=== PATIENT | male | born 1930 | race Hispanic/Latino ===

== ENCOUNTER 2017-08-02 10:02 | Inpatient (IN) | payer MEDICARE, MEDICAID ==
[2017-08-02 10:38] LABS: Base Excess-Venous -9.3 mmol/L (-30.0-30.0); Bicarbonate (HCO3v) 18.7 mmol/L (1.0-85.0); CO2 Tension (PvCO2) 47.1 mmHg (41.0-51.0); Calcium, Ionized 1.15 mmol/L (1.12-1.32); Hemoglobin - Calc 15.5 g/dL (12.0-18.0); O2 Tension (PvO2) 26.8 mmHg (35.0-45.0); Potassium 4.4 mmol/L (3.4-4.7); T. Carbon Dioxide 20.2 mmol/L (1.0-85.0); pH (Venous) 7.207 (7.35-7.45); vO2 Saturation-calc 37.5 % (0.0-100.0)
[2017-08-02 10:42] LABS: Hemoglobin 13.7 g/dL (14.0-18.0); Mean Corpuscular Hemoglobin 29.3 pg (27.0-31.0); Mean Corpuscular Volume 94.7 fl (80.0-94.0); Mean Platelet Volume 8.5 fL (7.4-10.4); Platelet Count 129 thou/uL (130-400); RBC Distribution Width 13.1 % (11.5-14.5); Red Blood Cell (RBC) Count 4.66 mill/uL (4.70-6.10); White Blood Cell (WBC) Count 3.1 thou/uL (4.8-10.8)
[2017-08-02 11:04] LABS: ALT (SGPT) 13 U/L (8-55); AST (SGOT) 16 U/L (5-34); Albumin 3.8 g/dL (3.4-4.8); Alkaline Phosphatase 118 U/L (40-150); Anion Gap 20 mmol/L (10-20); BUN (Urea Nitrogen) 27 mg/dL (8.4-25.7); Bilirubin, Total 0.9 mg/dL (0.2-1.2); Calc. Creatinine Clearance 0 mL/min (70-130); Calcium 9.2 mg/dL (7.8-10.44); Carbon Dioxide 16 mmol/L (23-31); Chloride 105 mmol/L (98-107); Estimated GFR-MDRD 33; Globulin 3.4 g/dL (2.4-3.5); Glucose 248 mg/dL (83-110); Protein, Total 7.2 g/dL (5.8-8.1); Sodium 137 mmol/L (136-145)
[2017-08-02 11:10] LABS: Band 24 % (5-11); Lymphocytes 12 % (21-51); MDiff Complete? YES; Monocytes 1 % (0-10); Neutrophil 63 % (42-75); PLT Morphology Comment Appears Adequate; RBC Morphology Normal
--- NOTE | 2017-08-02 11:28 | RAD ---
PORTABLE CHEST: Date: 08-02-17 Provided Clinical History: Hematuria. FINDINGS: Comparison 11-03-16. Cardiac and mediastinal silhouette is within normal limits. Vascular calcification involves the aorti c arch. No definite focal consolidation, pleural fluid or pneumothorax is apparent. IMPRESSION: No evidence for an acute cardiopulmonary process. POS: [facility]
[2017-08-02] MEDS ORDERED: Gentamicin Sulfate 340 MG in Sodium Chloride 0.9% 100 ML IVPB SCH (12:30)
[2017-08-02] MEDS ORDERED: cefTRIAXone\\ROCEPHIN 2 GM in Sodium Chloride 0.9% 100 ML IVPB SCH (12:45)
[2017-08-02] MEDS ORDERED: Acetaminophen 650 MG Suppository ONE (13:27)
[2017-08-02 14:25] LABS: Actual Bicarbonate (HCO3a) 15.1 mEq/L (22-26); Base Excess (BEa) -15.6 mEq/L (0 (+/-) 2.5); CO2 Tension 62.9 mmHg (35.0-45.0); Hematocrit-ABG 23.5 % (42.0-52.0); Hemoglobin (Hb) 8.4 g/dL (14.0-18.0); O2 Tension (PaO2) 164.8 mmHg (80.0-100.0)
[2017-08-02 14:26] LABS: ALV-art Gradient 464.575 (0-20); Analyzer IN Cardio ER; Puncture Site RRA
[2017-08-02] MEDS ORDERED: Norepinephrine 8 MG/0.9% NS 0 ML ONE (14:34)
[2017-08-02] MEDS ORDERED: Norepinephrine 8 MG/0.9% NS 250 ML ONE (14:35)
[2017-08-02 15:04] LABS: Lactic Acid 16.3 mmol/L (0.5-2.2)
[2017-08-02 15:12] LABS: pH, Arterial 7.12 (7.35-7.45)
[2017-08-02 15:13] LABS: ALV-art Gradient 537.975 (0-20); Analyzer IN Cardio ER; Base Excess (BEa) -16.4 mEq/L (0 (+/-) 2.5); CO2 Tension 37.7 mmHg (35.0-45.0); Calcium, Ionized 1.1 mmol/L (1.12-1.30); Hematocrit-ABG 30.9 % (42.0-52.0); Hemoglobin (Hb) 10.5 g/dL (14.0-18.0); O2 Tension (PaO2) 122.9 mmHg (80.0-100.0); Puncture Site RBA
--- NOTE | 2017-08-02 15:31 | RAD ---
PORTABLE CHEST 1 VIEW: DATE: 08/02/17. TIME: 3:14 p.m. HISTORY: Respiratory failure. FINDINGS: Comparison is made with the exam of 11:04 a.m. from the same day. Interval placement of an endotracheal tube is seen with the tip just above the level of the che. A nasogastric tube can be traced into the stomach. There is a right jugular central line with tip in the projection of the SVC close to the cavoatrial junction. There is mild pulmonary vascular conges tion. There are faint opacities in the right mid and lower lung zones. No pneumothoraces or large e ffusions are seen. There are degenerative changes in the spine. Old healed fracture of the right cl avicle is again noted. POS: [facility]
[2017-08-02 15:35] LABS: PTT 63.9 SEC (22.9-36.1); Prothrombin Time 23.1 SEC (12.0-14.7)
--- NOTE | 2017-08-02 15:51 | CT ---
CT OF THE ABDOMEN AND PELVIS WITHOUT CONTRAST: Date: 08/02/17 INDICATION: Hematuria and aphasia COMPARISON: 12/06/10. FINDINGS: There is bibasilar air space consolidation and mild bilateral pleural effusions. There is a gastric c atheter in place. There are some perihilar air space opacities seen within the upper outer region whi ch may be related to edema. Unopacified liver, spleen, pancreas, and right adrenal gland appear within normal limits. There is sl ight hypertrophy of the left adrenal gland. There is bilateral hydronephrosis. There is prominent dis tention of the bladder. There is prostate enlargement. There is a prominent amount of stool within th e rectum. Small bowel is of normal caliber. There is an intermittent healed right intertrochanteric fracture. There is diffuse osteopenia. There is scattered degenerative change. No definite acute osseous abnormality is grossly evident. IMPRESSION: 1. Prominent distention of the bladder with bilateral hydronephrosis suggests chronic bladder outlet syndrome. 2. Bibasilar air space consolidation suspicious for pneumonia or aspiration. 3. Infrahilar edema suggesting either volume overload or component of CHF. 4. Gastric catheter. 5. Other findings as above. POS: [facility]
[2017-08-02] MEDS ORDERED: EPINEPHrine 1 MG, Admixture Fee 1 EACH in Dextrose 5% in Water 250 ML IVPB SCH (17:00)
[2017-08-02] MEDS ORDERED: EPINEPHrine 1 MG/10 ML Abboject SYRINGE ONE (17:00)
[2017-08-02] MEDS ORDERED: Atropine Sulfate 1 mg/10 ml Syringe ONE (17:00)
[2017-08-02] MEDS ORDERED: Sodium Chloride 0.9% 2,000 ML IV SCH (17:36)
[2017-08-02] MEDS ORDERED: Piperacillin/Tazobactam 4.5 GM in Sodium Chloride 0.9% 100 ML IVPB SCH (18:00)
[2017-08-02] MEDS ORDERED: Sodium Bicarb 50 MEQ/50 ML Abboject 8.4% SYRINGE ONE ×3 (18:30→18:39)
[2017-08-02] MEDS: Sodium Bicarbonate 150 MEQ in Dextrose 5% in Water 1,000 ML IV SCH (18:38)
[2017-08-02 18:41] LABS: Bilirubin Negative (Negative); Blood, Urine Large (Negative); Clarity CLOUDY (Clear); Glucose, Urine (Dipstick) Negative (Negative); Leukocyte Large (Negative); Nitrite Negative (Negative); Protein, Urine (Dipstick) Negative (Neg-Trace); Specific Gravity, Urine 1.015 (1.002-1.036)
[2017-08-02 18:43] LABS: Bacteria/HPF 4+ HPF (None Seen); Hyaline Casts/LPF 0-3 HYALINE CAST LPF (0-3 Hyaline); RBC/HPF GREATER THAN 50-TNTC HPF (0-3); Squamous Epithelial None Seen HPF (0-3)
[2017-08-02 18:44] LABS: Yeast-AUWi Flag 34.1 (0-25.0)
[2017-08-02 18:53] LABS: Yeast-All Forms None Seen HPF (None Seen)
--- NOTE | 2017-08-02 19:30 | CON ---
DATE OF CONSULTATION: 08/02/2017 Mr. Harris is a halfway patient, is unable to speak. He was transferred here from halfway for hematuria. He was triged 10:00 this morning. At approximately 2pm, he had an abdomen CT showing massive distention of his bladder and bilateral hydronephrosis. I was called about 4:30 from the emergency department resident, who told me he was needing me to see someone, who has had a full arrest in the ER, had been intubated and resuscitated. He had 30 minutes of CPR after his arrest. TheER doctor did not talk to the family, but the Hospitalist apparently talked to the family and they wanted everything to continue. His CT of his abdomen also showed a gastric feeding tube in place. I reviewed his chest radiograph and there were no pulmonary infiltrates, but his abdomen CT showed bibasilar infiltrates. He is unable to give any history since he is intubated. PHYSICAL EXAMINATION: GENERAL: He had respiratory effort. His eyes were partially open. He has no corneals. He had cervical lymphadenopathy, is orally intubated. LUNGS: Remarkable for equal breath sounds. HEART: Regular rhythm. ABDOMEN: Soft. Abdomen exam is remarkable for massive lower abdominal distention and rigidity, most likely from massively distended bladder. 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 FAMILY HISTORY: Not obtainable. Review on old records, his family history of hypertension. SOCIAL HISTORY: He is a nonsmoker, nondrinker. No history of drug use. Last time he was in the hospital, he was on Pro-Stat, aspirin, Lipitor, Plavix, Colace, lisinopril, Claritin, multivitamin, Protonix, MiraLax, scopolamine patch , and tramadol. REVIEW OF SYSTEMS: 10 Point review of systems otherwise negative. PAST MEDICAL HISTORY: 1. 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 I guess placement again. 2. History of recurrent falls in the past. 3. 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 4. History of surgical repair of right intertrochanteric femur fracture. 5. History of a right zofis-pac-vdfa amputation. 6. History of incision and drainage of an abscess in his left buttock in the past. 7. History of depression. 8. History of dementia. He has been seen by Dr. Benitez in the past according to the records. LABORATORY: White count 3.1, hemoglobin 13.7, platelets 129,000, 24% bands on his peripheral smear. Sodium 137, potassium 4, chloride 105, bicarbonate 16, at 10:30 this morning, BUN 27, creatinine 1.94, creatinine baseline looking back through old records/ he was about 0.7-0.8. Lactate is 8.9 this morning, was 16.3 this afternoon. BNP is 227. IMPRESSION: Sepsis secondary to bladder outlet obstruction. Apparently, there has been no urine in his tiwari all day. His Tiwari was removed. I was told the nurse had tried to replace it and could not. Urology not consulted until late this afternoon after I had discussion with the ER resident explaining,for all practical purposes,this is a surgical emergency with his obstruction, severe metabolic acidosis, and most likely sepsis from bladder outlet obstruction. He had significant hydronephrosis on his scan. He had multiple underlying problems. He has had a blood gas done since his code and his pH 7.12. I recommended that the ER physician gave the patient 4-6 amps of bicarbonate. He said he was starting a bicarbonate drip. His mortality is probably 100% with aggressive care given his multiple medical problems. It was also extremely unlikely after a 30 minute code that he will awaken. His initial pH after his code at 1411 was 7.0. Critical care time, 45 minutes. ZENIA
--- NOTE | 2017-08-02 20:03 | HP ---
DATE OF ADMISSION: 08/02/2017 CHIEF COMPLAINT: Hematuria and blood in the urine. HISTORY OF PRESENT ILLNESS: This is an 87-year-old white male with a known past history of urinary problems and has been in chronic indwelling catheter, happened to have catheter removed in the care home and was trying to put it back, so it started bleeding, so he had come to the ER for further evaluation. When patient arrived in the ER, they tried multiple attempts to put back the catheter. During this episode, the patient dropped his blood pressure and was severely tachycardic, following which he developed diaphoresis associated with nausea and vomiting, and following vomiting, he happened to aspirate and developed severe hypoxia and went into cardiac arrest. The patient had multiple episodes of CPR along 3 ampules of bicarbonate and 4 ampules of epinephrine were given. The patient was able to get the pulse back and was resuscitated with 2-3 liters of IV fluids and still unable to get the Garland catheter. Urology was consulted for this. The patient was started on epinephrine drip following this and his blood pressures were barely in 60s systolic with low MAP. Dr. Pina, Critical Care, was consulted from the ER and plan to see the patient in the ER. Unable to get any history from the patient. Called the patient's son Saad Harris, who is the medical power of real estate associate attorney and explained about the patient's critical condition and asked about his code status who mentioned that the patient mentioned that he would be a FULL CODE and advised to continue on the resuscitation efforts. PAST MEDICAL HISTORY: 1. Hypertension. 2. Dyslipidemia. 3. 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 4. Expressive aphasia. 5. History of dysphagia. 6. History of PEG tube placement with subsequent removal. 7. History of recurrent falls. 8. History of fossa navicularis stricture, requiring chronic indwelling Garland catheter. PAST SURGICAL HISTORY: 1. The patient had a PEG tube placement and also removal in the past. 2. Right intertrochanteric femur fracture. 3. Right above knee amputation. 4. Incision and drainage of abscess at left gluteal thigh junction. PAST PSYCHIATRIC HISTORY: 1. Anxiety. 2. Depression. 3. Dementia. REVIEW OF SYSTEMS: Could not be obtained and most of the history is obtained from the previous records and from discussion with ER physician. ALLERGIES: No known drug allergies. FAMILY HISTORY: Hypertension runs among several family members. SOCIAL HISTORY: The patient lives at [facility]. No history of tobacco. No history of alcohol. No history of illicit drug use. He is survived by his son, Saad Harris, who is the medical power of real estate associate attorney. His code status has been discussed with son as the patient is FULL CODE at this time. PHYSICAL EXAMINATION: VITAL SIGNS: Blood pressure 66/45 with MAP of 60 and the patient is on epinephrine drip at this time along with a bicarbonate drip. GENERAL: The patient is intubated and is on ventilator with 100% FiO2 and saturation 95%. HEENT: Atraumatic, normocephalic. PERRLA. Extraocular movements were intact. Oral mucosa is pink and moist. CARDIOVASCULAR: S1, S2 normal. No murmurs, rubs or gallops. LUNGS: Bilateral air entry was reduced with wheezing and crackles noted in the right lung. ABDOMEN: Soft, nontender, no guarding, no rebound tenderness. No bowel sounds were heard at this time. MUSCULOSKELETAL: The patient has right above knee amputation. No evidence of any infection noted at the amputation site. Left lower extremity, no pedal edema was noted. No calf tenderness. CENTRAL NERVOUS SYSTEM: Could not be done. SKIN: No cyanosis, no erythema, no rash, no bruising was noted. LYMPHADENOPATHY: No evidence of generailzed lymphnodes seen. Cervical and Axillary nodes were normal. NECK: No JVD and no thyromegaly noted LABORATORY DATA AND IMAGING DATA: 1. WBC 3.1, hemoglobin is 13.7, hematocrit is 44.1, and platelets are 129. 2. Neutrophils 24. 3. Sodium is 137, potassium is 4.1, chloride 105, BUN is 27, creatinine 1.94, blood sugar 248. Lactic acid 8.9. 4. BNP is 227. 5. Arterial blood gas showed pH of 7.12, pCO2 of 37, pO2 of 122.9 and repeat in 2HRS. ASSESSMENT: 1. Acute septic shock. 2. Acute hypoxic respiratory failure. 3. Acute aspiration pneumonia. 4. Acute cardiogenic shock. 5. Severe metabolic acidosis. 6. Acute hematuria with complicated bladder. PLAN: 1. Plan is to closely monitor this patient in the ICU and continue with mechanical ventilation at this time and follow with Pulmonary recommendations. The patient has clear signs of septic shock with markedly elevated bandemia and with history of indwelling catheter. The patient most likely either has urosepsis. We will start the patient on Zosyn, levofloxacin and vancomycin and renally dose it at this time. 2. The patient is on epinephrine drip at this time. We will continue with epinephrine drip unless critical care physician would like to change to Levophed. We will continue with fluid resuscitation as there is no evidence of congestive heart failure in the patient. 3. The patient has aspiration pneumonitis from active vomiting. The patient has a history of dysphagia secondary to previous CVA in the past. At this time , we will continue to monitor and follow with the Pulmonary recommendations. 4. The patient has severe metabolic acidosis, he has been given 3 vials of bicarbonate and is on bicarbonate drip at this time and we will continue to follow with Pulmonary recommendations. We will repeat ABGs in 2 hours. 5. The patient has acute renal injury likely from dehydration and septic shock. We will closely monitor his renal functions and we will consult Nephrology if any worsening renal functions as noted. 6. Code status has been discussed with patient's son and explained about the critical situation and he advised to continue with fluid resuscitation at this time. 7. We will continue to engage with patient's son and update him about his poor prognosis at this time. 8. Deep venous thrombosis prophylaxis, sequential compression devices as the patient is a high bleeding risk secondary to hematuria. I spent 75 minutes with this patient. Of this, one hour is critical care time. ZENIA
--- NOTE | 2017-08-02 20:32 | CON ---
DATE OF CONSULTATION: 08/02/2017 Consultation was requested for Garland placement with presumed urosepsis. Patient was seen by Dr. Benitez back in October for a fossa navicularis stricture that required urologic intervention for Garland placement, at that time when there was also concern for urosepsis. He followed up in the office once or twice and failed voiding trials and there was going to be discussions regarding the indwelling versus suprapubic tube or intermittent catheterization. More recently, the patient presented to the ER with a Garland catheter that had blood at the meatus and was not draining, it was removed and initially I was told there was attempt to placement, but once I presented and discussed it further, it does not sound like anyone even attempted to place a catheter because of concerns for the hypospadiac meatus that was simply from chronic Garland pressure and erosion. PAST MEDICAL HISTORY: Significant for CVA with hemiparesis, dysphagia and aphasia, dementia, hypertension, high cholesterol, peripheral vascular disease, arthritis, reflux, CHF, anxiety and depression. PAST SURGICAL HISTORY: Significant for a PEG tube in 2013, but that since been removed; right ORIF I think of the hip from 07/2016 and a right lower extremity amputation in 10/2016. ALLERGIES: None. SOCIAL HISTORY: Does not have a smoking history and he lives in a shelter. MEDICATIONS: Plavix, atorvastatin, lisinopril, MiraLax, loperamide as needed. REVIEW OF SYSTEMS: Could not be obtained as the patient is obtunded, noncommunicatory. FAMILY HISTORY: Not known from a parental standpoint and noncontributory. PHYSICAL EXAMINATION: GENERAL: He has just reached the unit being transferred from the ER, he is connected to multiple IVs including pressors and intubated, but has not been sedated and is still obtunded and nonresponsive, heart rate is 118. VITAL SIGNS: Blood pressure is actually 132/66, respiratory rate 33, satting 89 % with presumed 100% O2. CARDIOVASCULAR: Regular rate and tachycardic. LUNGS: Difficult to assess, but relatively clear. ABDOMEN: Softly distended with hyperactive bowel sounds and this was after I placed a Garland which I will dictate momentarily. EXTREMITIES: His right lower extremity had been amputated previously with a healed incision. His left lower extremity was without obvious edema. : (JANENE deferred) Testes were descended bilaterally. His phallus initially was without a Garland catheter and hypospadias with the meatus just below the coronal margin consistent with erosion from prior indwelling Garland catheter. I then prepped his penis and under sterile conditions, placed an 18 Polish silicone coude without difficulty for yellow malodorous urine that would be sent for micro and culture. I secured this to his thigh. LABORATORY DATA: Revealed a low white count 3.1, platelets 129. PT 23.1 with an INR of 2.0. PTT is 63.9. His pH is significantly acidotic at 7.00, and then repeated at 7.12. BUN and creatinine are 27 and 1.94 with a baseline creatinine of 1. There is no urinalysis yet that is pending. Most recent culture that was positive was from October and showed Klebsiella and Pseudomonas sensitive to almost everything. CT scan from 08/02/2017 was read personally without contrast and revealed bilateral hydroureteronephrosis due to a large bladder that was above the umbilicus and an enlarged prostate with an intravesical lobe. There were no stones or masses. ASSESSMENT AND PLAN: We have an 87-year-old male admitted with presumed urosepsis and obstruction, Garland catheter that has now changed and draining. His medical management will be taken care of by the admitting team. I reviewed how I expect his urine to become bloody based on the over-distended bladder combined with Plavix and presumably some component of hypocoagulable state from sepsis and hand irrigation may be required. He is on broad spectrum antibiotics at this time and these can be narrowed once a culture is obtained. It may be beneficial to go ahead and start finasteride during this stay/when can tolerate meds to help decrease any concerns for prostatic bleeding related to both infection and Garland catheter. I will review this information with Dr. Benitez. ZENIA
[2017-08-02] MEDS: Norepinephrine 8 MG/0.9% NS 250 ML IVPB SCH (20:50)
[2017-08-02] MEDS: Piperacillin/Tazobactam 3.375 GM in Sodium Chloride 0.9% 100 ML IVPB SCH (20:55)
[2017-08-02] MEDS ORDERED: Propofol 1,000 MG/100 ML VIAL IV PRN (21:45)
[2017-08-02] MEDS ORDERED: Morphine 2 MG/ML SYRINGE SLOW IVP PRN (21:45)
[2017-08-02] MEDS ORDERED: Fentanyl BOLUS 250 ML IVPB PRN (21:45)
[2017-08-02] MEDS ORDERED: DISCONTINUE PREVIOUS NARCOTIC PAIN MEDICATIONS AND BENZODIAZEPINES FS SCH (21:45)
[2017-08-02] MEDS ORDERED: Lorazepam 2 MG/ML VIAL SLOW IVP PRN (21:45)
[2017-08-02] MEDS ORDERED: fentaNYL Citrate/PF 2,000 MCG in Sodium Chloride 0.9% 60 ML IV SCH (21:46)
[2017-08-02] MEDS ORDERED: Propofol 1,000 MG/100 ML VIAL IV ONE (21:52)
[2017-08-02 23:38] LABS: Lactic Acid 12.6 mmol/L (0.5-2.2)
[2017-08-03] MEDS: Sodium Bicarbonate 150 MEQ in Dextrose 5% in Water 1,000 ML IV SCH ×2 (00:31→07:37)
[2017-08-03] MEDS: Piperacillin/Tazobactam 3.375 GM in Sodium Chloride 0.9% 100 ML IVPB SCH ×4 (01:43→17:31)
[2017-08-03] MEDS: Norepinephrine 8 MG/0.9% NS 250 ML IVPB SCH ×4 (04:21→22:17)
[2017-08-03 05:14] LABS: Band 33 % (5-11); Eosinophils 1 % (0-10); Hemoglobin 11.4 g/dL (14.0-18.0); Lymphocytes 10 % (21-51); MDiff Complete? YES; Mean Corpuscular Hemoglobin 30.7 pg (27.0-31.0); Mean Corpuscular Volume 90.3 fl (80.0-94.0); Mean Platelet Volume 10.2 fL (7.4-10.4); Metamyelocyte 11 % (0-0); Monocytes 4 % (0-10); Myelocyte 2 % (0-0); Neutrophil 39 % (42-75); PLT Morphology Comment Appears Decreased; Platelet Count 63 thou/uL (130-400); White Blood Cell (WBC) Count 11.8 thou/uL (4.8-10.8)
[2017-08-03 05:27] LABS: Anion Gap 18 mmol/L (10-20); BUN (Urea Nitrogen) 39 mg/dL (8.4-25.7); Calc. Creatinine Clearance 24 mL/min (70-130); Calcium 6.9 mg/dL (7.8-10.44); Carbon Dioxide 24 mmol/L (23-31); Chloride 103 mmol/L (98-107); Estimated GFR-MDRD 28; Glucose 262 mg/dL (83-110); Potassium 2.4 mmol/L (3.5-5.1); Sodium 143 mmol/L (136-145)
--- NOTE | 2017-08-03 06:12 | ADD-CON ---
DATE OF CONSULTATION: 08/02/2017 ADDENDUM: I had 2 meetings, one with a grandson and then one with the entire family including the son. He decl ined not to repeat CPR or chest compressions, but he wants to discuss it with his family and they poonam l let the nurses know. The epi is off now. He has received 4 amps of bicarbonate. His blood pressu re is up to 140 now. His respiratory rate is 30 per mechanical ventilation. He does attempt to over breathe the mechanica l ventilation. He made an effort to open his eyes to sternal rub, but I do not think he will functio angela recover, and per my discussion with family, he was not very functional for the last few months. He has had garbled speech and limited p.o. intake. This may be a metabolic acidosis secondary just to hypoperfusion and dehydration plus or minus urinary tract sepsis. In any event, he will be hydra danny, he will continue with bicarbonate drip. He will receive broad antimicrobial coverage. A new Fo sabiha was easily placed by the urologist. I am told that no one in the ER tried to put a Garland in him.
[2017-08-03] MEDS ORDERED: Potassium Chloride 40 MEQ in Sodium Chloride 0.9% 250 ML 250 ML IVPB SCH (07:00)
[2017-08-03 08:01] LABS: Actual Bicarbonate (HCO3a) 22.6 mEq/L (22-26); CO2 Tension 26.4 mmHg (35.0-45.0); Hematocrit-ABG 29.5 % (42.0-52.0); O2 Tension (PaO2) 70.3 mmHg (80.0-100.0); pH, Arterial 7.55 (7.35-7.45)
[2017-08-03 08:02] LABS: Analyzer IN Cardio OR; Calcium, Ionized 0.9 mmol/L (1.12-1.30); Hemoglobin (Hb) 10.2 g/dL (14.0-18.0); Puncture Site RBA
[2017-08-03] MEDS ORDERED: Sodium Chloride 0.45% 1,000 ML IV SCH (08:45)
[2017-08-03] MEDS ORDERED: FLU VACC TS2017-18 (>65YR) 0.5 ML SYRINGE IM ONE ×2 (09:00→09:15)
[2017-08-03] MEDS ORDERED: Lorazepam 2 MG/ML VIAL SLOW IVP PRN (09:09)
[2017-08-03] MEDS ORDERED: Fentanyl BOLUS 250 ML IVPB PRN (09:09)
[2017-08-03] MEDS ORDERED: fentaNYL Citrate/PF 2,000 MCG in Sodium Chloride 0.9% 60 ML IV SCH (09:15)
[2017-08-03] MEDS: Sodium Chloride 0.45% 1,000 ML IV SCH ×3 (09:18→23:38)
[2017-08-03] MEDS: Albumin 25% 25 GM/100 ML BOT IVPB SCH ×3 (11:24→23:41)
[2017-08-03] MEDS: Potassium Chloride 40 MEQ in Sodium Chloride 0.9% 250 ML 250 ML IVPB SCH (11:30)
[2017-08-03] MEDS ORDERED: Albumin 25% 25 GM/100 ML BOT IVPB SCH (12:00)
[2017-08-03] MEDS ORDERED: Vancomycin HCl 750 MG in Sodium Chloride 0.9% 250 ML 250 ML IVPB SCH (12:00)
[2017-08-03 12:34] VITALS: BMI 24.2
--- NOTE | 2017-08-03 12:34 | PRG ---
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 OBJECTIVE: VITAL SIGNS: He still has a resting tachycardia with a heart rate in the 130s, blood pressure is in the 90s, respiratory rate in the 30s. GENERAL: He overbreathes the ventilator to a considerable degree. He is not following commands. He does move about in bed spontaneously. LUNGS: His lungs are clear anteriorly. HEART: Regular rhythm. S1 and S2 are normal. ABDOMEN: Soft and nontender, no guarding, no masses. LABORATORY DATA: White count 11.8, hemoglobin 11.4, platelets 63,000. He has 33% bands on his perip heral smear. Sodium 143, potassium 2.4, chloride 103, bicarbonate 24, BUN 39, creatinine 2.21. pH 7.55, CO2 26, p O2 of 70. IMPRESSION: Respiratory failure associated with bacteremia secondary to bladder outlet obstruction. He has gram negative rods growing from his blood. We will stop vancomycin. We will continue treatment of his clinical sepsis. Salt-poor albumin would be added. We will continue to try to wean him off of his pressors. I met with his family again and his son and family agree but they do not want him to go through [facility] er code. I do not think he is going to code. I do not think he is going to, however, recover neurol ogically from his arrest yesterday, but will take one day at a time for now. DVT prophylaxis will be added. Critical care time 30 minutes. Independently time spent with the family, which total of about 15 min utes.
--- NOTE | 2017-08-03 14:53 | PDOC.PN ---
- Subjective Encounter Start Date: 08/03/17 Encounter Start Time: 12:00 -: non-verbal Patient remains Intubated and Sedated, no Family me=michael at Bedside, Discussed with Nurse, said pt family did change to DNR - Objective Resuscitation Status: Resuscitation Status DNR:Do Not Resuscitate MAR Reviewed: Yes Vital Signs & Weight: Vital Signs (12 hours) Temp Pulse Resp BP Pulse Ox 08/03/17 14:00 41 H 08/03/17 12:39 132 H 107/55 L 08/03/17 12:34 133 H 38 H 95 08/03/17 12:00 98.9 F 39 H 08/03/17 10:00 39 H 08/03/17 08:00 42 H 08/03/17 07:12 98.5 F 132 H 30 H 92 L 08/03/17 07:00 98.5 F 08/03/17 06:32 132 H 132/69 08/03/17 06:30 133 H 41 H 93 L 08/03/17 06:00 40 H 08/03/17 05:00 98 F 08/03/17 04:00 98.8 F 30 H Weight Admit Weight 152 lb 11.2 oz Weight 150 lb 0.04 oz Most Recent Monitor Data Heart Rate from ECG 128 NIBP 104/44 NIBP BP-Mean 61 Respiration from ECG 42 SpO2 97 I&O: 08/02/17 08/03/17 08/04/17 06:59 06:59 06:59 Intake Total 7525.2 450 Output Total 2283 300 Balance 5242.2 150 Result Diagrams: 08/03/17 04:39 08/03/17 04:39 Radiology Reviewed by me: Yes Phys Exam - Physical Examination HEENT: moist MMs Neck: no nodes, no JVD Respiratory: no wheezing, no rales Cardiovascular: RRR, no significant murmur Gastrointestinal: soft, non-tender Musculoskeletal: no edema, pulses present Neurological: non-focal, normal sensation Lymphatic: no nodes Psychiatric: normal affect, A&O x 3 Skin: no rash, normal turgor Dx/Plan (1) Aspiration pneumonitis Code(s): J69.0 - PNEUMONITIS DUE TO INHALATION OF FOOD AND VOMIT Status: Acute Comment: Continue on above Antibitoics, pt had Aspirated in ER triggered by vagal response during Serra cath insertion. Continue with Neb/ vent Management. (2) Septic shock due to Escherichia coli Code(s): A41.51 - SEPSIS DUE TO ESCHERICHIA COLI [E. COLI]; R65.21 - SEVERE SEPSIS WITH SEPTIC SHOCK Status: Acute Comment: PT is on Zosyn and levofloxacin, Vanc d/haylee as pt has gram neg bacteremia. PT WBC increased today, Will continue with IV antibitoics at least 7 days from neg blood cultures. (3) UTI (urinary tract infection) Status: Acute Qualifiers: Urinary tract infection type: catheter-associated UTI Indwelling urinary catheter type: indwelling urethral catheter Encounter type: subsequent encounter Qualified Code(s): T83.511D - Infection and inflammatory reaction due to indwelling urethral catheter, subsequent encounter; N39.0 - Urinary tract infection, site not specified Comment: Continue with Above abx. (4) Urethral stricture Code(s): N35.9 - URETHRAL STRICTURE, UNSPECIFIED Status: Chronic Qualifiers: Urethral stricture sex-location: male urethra-fossa navicularis Comment: PT has Serra Cath now by urologySushant resolved Bladder distention and hydronephrosis. (5) Acute encephalopathy Code(s): G93.40 - ENCEPHALOPATHY, UNSPECIFIED Status: Resolved Comment: Pt is Sedated Now. (6) Lactic acidosis Code(s): E87.2 - ACIDOSIS Status: Resolved Comment: Improiving with Bicarb Drip, patient has poor prognosis. (7) CVA, old, dysphagia Code(s): I69.391 - DYSPHAGIA FOLLOWING CEREBRAL INFARCTION Status: Acute (8) Acute respiratory failure with hypoxia Code(s): J96.01 - ACUTE RESPIRATORY FAILURE WITH HYPOXIA Status: Acute Comment: On Vant management by Dr. Pina. Will cotninue to Monitor. - Plan cont current plan of care, continue antibiotics, respiratory therapy, DVT proph w/lovenox * . - Discharge Day Encounter end time: 12:45 (45 Min critical care time.) Review of Systems - Review of Systems Constitutional: negative: fever, chills, sweats, weakness, malaise, other Eyes: negative: Pain, Vision Change, Conjunctivae Inflammation, Eyelid Inflammation, Redness, Other ENT: negative: Ear Pain, Ear Discharge, Nose Pain, Nose Discharge, Nose Congestion, Mouth Pain, Mouth Swelling, Throat Pain, Throat Swelling, Other Respiratory: negative: Cough, Dry, Shortness of Breath, Hemoptysis, SOB with Excertion, Pleuritic Pain, Sputum, Wheezing Cardiovascular: negative: chest pain, palpitations, orthopnea, paroxysmal nocturnal dyspnea, edema, light headedness, other Gastrointestinal: negative: Nausea, Vomiting, Abdominal Pain, Diarrhea, Constipation, Melena, Hematochezia, Other Genitourinary: negative: Dysuria, Frequency, Incontinence, Hematuria, Retention , Other Musculoskeletal: negative: Neck Pain, Shoulder Pain, Arm Pain, Back Pain, Hand Pain, Leg Pain, Foot Pain, Other - Medications/Allergies Allergies/Adverse Reactions: Allergies Allergy/AdvReac Type Severity Reaction Status Date / Time No Known Allergies Allergy Verified 08/02/17 17:02 Medications: Current Medications Albumin Human (Albumin 25%) 25 gm IVPB Q6HR BARON Stop: 08/05/17 12:01 Last Admin: 08/03/17 11:24 Dose: 25 gm Albuterol/Ipratropium (Duoneb) 3 ml NEB [id number] [facility] Last Admin: 08/03/17 12:34 Dose: 3 ml Enoxaparin Sodium (Lovenox) 30 mg SC 0900 [facility] Levofloxacin 500 mg/ Device 100 mls @ 100 mls/hr IVPB Q2D@1700 BARON Norepinephrine Bitartrate (Levophed) 250 mls @ 0 mls/hr IVPB INF BARON; Titrate PRN Reason: Protocol Last Admin: 08/03/17 12:03 Dose: 250 mls Piperacillin Sod/Tazobactam (Sod 3.375 gm/ Sodium Chloride) 100 mls @ 200 mls/ hr IVPB Q6HR [facility] Last Admin: 08/03/17 11:30 Dose: 100 mls Fentanyl Citrate (Fentanyl Bolus) 250 mls @ 0 mls/hr IVPB PRN PRN; As Directed PRN Reason: Breakthrough pain Fentanyl Citrate 2,000 mcg/ (Sodium Chloride) 100 mls @ 0 mls/hr IV INF BARON; Per Protocol PRN Reason: Protocol Potassium Chloride 40 meq/ (Sodium Chloride) 270 mls @ 67.5 mls/hr IVPB 0700, 1200 [facility] Last Admin: 08/03/17 11:30 Dose: 270 mls Sodium Chloride (1/2 Normal Saline) 1,000 mls @ 150 mls/hr IV .Q6H40M [facility] Last Admin: 08/03/17 09:18 Dose: 1,000 mls Lorazepam (Ativan) 2 mg SLOW IVP Q2H PRN PRN Reason: Anxiety to achieve Driscoll 2-3 Last Admin: 08/03/17 14:21 Dose: 2 mg Morphine Sulfate (Morphine) 2 mg SLOW IVP Q2H PRN PRN Reason: Breakthrough pain Propofol (Diprivan) 1,000 mg IV INF PRN; Protocol PRN Reason: TO ACHIEVE DRISCOLL SCORE 2-3 Sodium Chloride (Flush - Normal Saline) 10 ml IVF Q12HR [facility] Sodium Chloride (Flush - Normal Saline) 10 ml IVF PRN PRN PRN Reason: Saline Flush
--- NOTE | 2017-08-03 15:35 | PRG ---
DATE OF SERVICE: 08/03/2017 SUBJECTIVE: Subjectively, the patient remains intubated and did require some sedation overnight and is still on pressors from a supportive standpoint and requiring significant ventilatory support. There were no concerns about catheter clotting or needing of the hand irrigate. He has remained afebrile with T-max of 98.8. He has been tachycardic in the 120s. His blood pressure has remained in the 110 for an average systolically. He was only satting 91% on 100% O2 previously or during the exam and has ranged from 87-93 from saturation standpoint. He had approximately 1800 out from placing the original catheter and approximately 275 out overnight and currently the bag is tea-colored, but not concerning for any significant blood. On exam, he has intubated and sedated. The Garland catheter is secured appropriately to his left upper thigh and there is minimal concern for scrotal or penile edema. LABORATORY DATA: Laboratory values revealed a white count has gone up to 11.8 with an H and H of 11.4 and 33.4. Platelets have dropped to 63. His creatinine is elevated to 2.21 with low potassium of 2.4. His urinalysis came back too numerous to count WBCs, too numerous to count RBCs, 4+ bacteria, no squamous cells and the culture is pending, but it presumably E. coli at the preliminary stage. ASSESSMENT: We have an 87-year-old male who was admitted with urosepsis after catheter got clogged, who has done well overnight from urologic standpoint, as the catheter is draining consistently and he is making urine. His creatinine is elevated further despite this, which is more consistent with intrinsic disease from his sepsis. Cont current support and care which is being handled by the ICU. As previously reviewed, It may be beneficial to start finasteride in him and/or consider switching to a shorter acting anticoagulant when his medical condition stabilizes. I reviewed this patient with Dr. Benitez and he will see him as an outpatient for further management. At this point, please let us know if there are other further urologic concerns. ZENIA
[2017-08-03] MEDS: Propofol 1,000 MG/100 ML VIAL IV PRN ×2 (17:31→19:00)
[2017-08-04] MEDS: Piperacillin/Tazobactam 3.375 GM in Sodium Chloride 0.9% 100 ML IVPB SCH ×3 (00:13→11:37)
[2017-08-04] MEDS: Norepinephrine 8 MG/0.9% NS 250 ML IVPB SCH ×3 (02:26→07:48)
[2017-08-04] MEDS: Propofol 1,000 MG/100 ML VIAL IV PRN (02:26)
[2017-08-04] MEDS: Albumin 25% 25 GM/100 ML BOT IVPB SCH ×3 (05:48→17:32)
[2017-08-04] MEDS: Sodium Chloride 0.45% 1,000 ML IV SCH ×3 (05:49→20:41)
[2017-08-04] MEDS ORDERED: Acetaminophen 650 MG Suppository PR PRN (05:52)
[2017-08-04] MEDS ORDERED: Acetaminophen 650 MG/20.3 ML UDCUP PO PRN (05:52)
[2017-08-04] MEDS ORDERED: Acetaminophen 325 MG TAB PO PRN (05:52)
[2017-08-04 07:23] LABS: Anion Gap 24 mmol/L (10-20); BUN (Urea Nitrogen) 47 mg/dL (8.4-25.7); Calc. Creatinine Clearance 18 mL/min (70-130); Calcium 6.8 mg/dL (7.8-10.44); Carbon Dioxide 20 mmol/L (23-31); Chloride 104 mmol/L (98-107); Estimated GFR-MDRD 21; Glucose 84 mg/dL (83-110); Magnesium 1.5 mg/dL (1.6-2.6); Sodium 144 mmol/L (136-145)
[2017-08-04] MEDS: Potassium Chloride 40 MEQ in Sodium Chloride 0.9% 250 ML 250 ML IVPB SCH (07:49)
[2017-08-04 08:03] LABS: Band 44 % (5-11); Hemoglobin 9.1 g/dL (14.0-18.0); Lymphocytes 5 % (21-51); MDiff Complete? YES; Mean Corpuscular Hemoglobin 30.6 pg (27.0-31.0); Mean Platelet Volume 11.2 fL (7.4-10.4); Metamyelocyte 15 % (0-0); Monocytes 1 % (0-10); Myelocyte 3 % (0-0); Neutrophil 32 % (42-75); PLT Morphology Comment Appears Decreased; Platelet Count 31 thou/uL (130-400); RBC Distribution Width 13.2 % (11.5-14.5); RBC Morphology Normal; Red Blood Cell (RBC) Count 2.99 mill/uL (4.70-6.10); White Blood Cell (WBC) Count 10.9 thou/uL (4.8-10.8)
[2017-08-04 08:24] LABS: Actual Bicarbonate (HCO3a) 19.2 mEq/L (22-26); Base Excess (BEa) -4.5 mEq/L (0 (+/-) 2.5); CO2 Tension 30.2 mmHg (35.0-45.0); Hematocrit-ABG 26.7 % (42.0-52.0); Hemoglobin (Hb) 8.8 g/dL (14.0-18.0); O2 Tension (PaO2) 157.5 mmHg (80.0-100.0); pH, Arterial 7.42 (7.35-7.45)
[2017-08-04 08:25] LABS: Calcium, Ionized 0.8 mmol/L (1.12-1.30); Puncture Site RBA
[2017-08-04] MEDS ORDERED: Enoxaparin Sodium 30 MG/0.3 ML SYRINGE SC SCH (09:00)
--- NOTE | 2017-08-04 09:30 | PRG ---
DATE OF SERVICE: 08/04/2017 Thirty-five minutes critical care time. SUBJECTIVE: The patient remains largely unresponsive on mechanical ventilation. There has been no p rogress in the last 24 hours. PHYSICAL EXAMINATION: VITAL SIGNS: Temperature 102.3, pulse 129, blood pressure 103/56. A 24-hour intake 6099, output 134 0. NEUROLOGIC: He will not withdraw to pain. He has some spontaneous respirations on mechanical ventil ation. HEENT: Pupils are sluggishly reactive. Sclerae are anicteric. Oropharynx is dry. NECK: No JVD. LUNGS: Coarse breath sounds. CARDIOVASCULAR: S1, S2, tachycardic. ABDOMEN: Soft. EXTREMITIES: Edematous. LABORATORY DATA: Sodium 144, potassium 4.0, chloride 104, CO2 of 20, BUN 47, creatinine 2.8, glucose 84. PH of 7.42, pCO2 of 30, pO2 of 157 on SIMV rate 20, tidal volume 500, PEEP 5, pressure support 10, FIO2 80%. White blood cell count 10.9, hematocrit 26.9, and platelet count 31. ASSESSMENT: 1. Status post prolonged cardiopulmonary arrest. 2. Bladder outlet obstruction. 3. Gram negative septicemia. 4. Acute respiratory failure, requiring mechanical ventilation. PLAN: The patient is demonstrating multiple organ failure, which is not improving. The greatest con cern is his neurologic status, which has not improved since admission. I think prospects for recover y from this are extremely poor. Family is apparently lean towards withdrawal of care at some point. In the meantime, we are continuing supportive care with fluids, antibiotics, and mechanical ventilat ion.
--- NOTE | 2017-08-04 13:53 | PDOC.PN ---
- Subjective Encounter Start Date: 08/04/17 Encounter Start Time: 12:00 -: non-verbal Intubated and Sedated. - Objective Resuscitation Status: Resuscitation Status DNR:Do Not Resuscitate MAR Reviewed: Yes Vital Signs & Weight: Vital Signs (12 hours) Temp Pulse Resp BP Pulse Ox 08/04/17 12:03 126 H 139/70 08/04/17 12:02 132 H 19 95 08/04/17 12:00 100.1 F H 20 08/04/17 10:00 20 08/04/17 08:00 40 H 08/04/17 07:56 127 H 109/57 L 08/04/17 07:55 130 H 40 H 98 08/04/17 07:25 102.3 F H 134 H 39 H 98 08/04/17 07:00 102.3 F H 08/04/17 06:00 41 H 08/04/17 05:00 101.6 F H 08/04/17 04:00 41 H 08/04/17 02:23 126 H 113/60 08/04/17 02:00 42 H Weight Admit Weight 152 lb 11.2 oz Weight 150 lb 0.04 oz Most Recent Monitor Data Heart Rate from ECG 115 NIBP 133/72 NIBP BP-Mean 90 Respiration from ECG 20 SpO2 96 I&O: 08/03/17 08/04/17 08/05/17 06:59 06:59 06:59 Intake Total 7525.2 6099 Output Total 2283 1340 430 Balance 5242.2 4759 -430 Result Diagrams: 08/04/17 06:48 08/04/17 06:48 Radiology Reviewed by me: Yes EKG Reviewed by me: Yes Phys Exam - Physical Examination HEENT: sclera anicteric Neck: no nodes, no JVD Respiratory: no rales, wheezing present Cardiovascular: RRR, no significant murmur Gastrointestinal: soft, non-tender Musculoskeletal: no edema, pulses present Skin: no rash, normal turgor Dx/Plan (1) Aspiration pneumonitis Code(s): J69.0 - PNEUMONITIS DUE TO INHALATION OF FOOD AND VOMIT Status: Acute Comment: Continue on above Antibitoics, pt had Aspirated in ER triggered by vagal response during Serra cath insertion. Continue with Neb/ vent Management.Follow Pulmonary recommedations. (2) Septic shock due to Escherichia coli Code(s): A41.51 - SEPSIS DUE TO ESCHERICHIA COLI [E. COLI]; R65.21 - SEVERE SEPSIS WITH SEPTIC SHOCK Status: Acute Comment: PT is on Zosyn and levofloxacin, Vanc d/haylee as pt has gram neg bacteremia. PT WBC increased today, Will continue with IV antibitoics at least 7 days from neg blood cultures. (3) UTI (urinary tract infection) Status: Acute Qualifiers: Urinary tract infection type: catheter-associated UTI Indwelling urinary catheter type: indwelling urethral catheter Encounter type: subsequent encounter Qualified Code(s): T83.511D - Infection and inflammatory reaction due to indwelling urethral catheter, subsequent encounter; N39.0 - Urinary tract infection, site not specified Comment: Continue with Above abx. (4) Urethral stricture Code(s): N35.9 - URETHRAL STRICTURE, UNSPECIFIED Status: Chronic Qualifiers: Urethral stricture sex-location: male urethra-fossa navicularis Comment: PT has Serra Cath now by urologySushant resolved Bladder distention and hydronephrosis. (5) Acute encephalopathy Code(s): G93.40 - ENCEPHALOPATHY, UNSPECIFIED Status: Resolved Comment: Pt is Sedated Now. (6) Lactic acidosis Code(s): E87.2 - ACIDOSIS Status: Resolved Comment: Improiving with Bicarb Drip, patient has poor prognosis. (7) CVA, old, dysphagia Code(s): I69.391 - DYSPHAGIA FOLLOWING CEREBRAL INFARCTION Status: Acute (8) Acute respiratory failure with hypoxia Code(s): J96.01 - ACUTE RESPIRATORY FAILURE WITH HYPOXIA Status: Acute Comment: On Vant management by Dr. Lord today. Will cotninue to Monitor.some Improveemnt on oxygenation noted. - Plan cont current plan of care, plan discussed w/ family, serra catheter, continue antibiotics, DVT proph w/lovenox * . - Discharge Day Encounter end time: 12:35 Review of Systems - Review of Systems Other: NO ROS as pt is Sedated. - Medications/Allergies Allergies/Adverse Reactions: Allergies Allergy/AdvReac Type Severity Reaction Status Date / Time No Known Allergies Allergy Verified 08/02/17 17:02 Medications: Current Medications Acetaminophen (Tylenol) 650 mg PO Q4H PRN PRN Reason: Headache/Fever or Mild Pain Acetaminophen (Tylenol) 650 mg CA Q4H PRN PRN Reason: Headache/Fever or Pain Last Admin: 08/04/17 06:04 Dose: 650 mg Acetaminophen (Tylenol Elixir) 650 mg PO Q4H PRN PRN Reason: pain/fever Albumin Human (Albumin 25%) 25 gm IVPB Q6HR BARON Stop: 08/05/17 12:01 Last Admin: 08/04/17 11:38 Dose: 25 gm Albuterol/Ipratropium (Duoneb) 3 ml NEB [id number] BARON Last Admin: 08/04/17 12:02 Dose: 3 ml Enoxaparin Sodium (Lovenox) 30 mg SC 0900 BARON Last Admin: 08/04/17 08:32 Dose: 30 mg Levofloxacin 500 mg/ Device 100 mls @ 100 mls/hr IVPB Q2D@1700 BARON Norepinephrine Bitartrate (Levophed) 250 mls @ 0 mls/hr IVPB INF BARON; Titrate PRN Reason: Protocol Last Admin: 08/04/17 07:48 Dose: 250 mls Piperacillin Sod/Tazobactam (Sod 3.375 gm/ Sodium Chloride) 100 mls @ 200 mls/ hr IVPB Q6HR [facility] Last Admin: 08/04/17 11:37 Dose: 100 mls Fentanyl Citrate (Fentanyl Bolus) 250 mls @ 0 mls/hr IVPB PRN PRN; As Directed PRN Reason: Breakthrough pain Fentanyl Citrate 2,000 mcg/ (Sodium Chloride) 100 mls @ 0 mls/hr IV INF BARON; Per Protocol PRN Reason: Protocol Sodium Chloride (1/2 Normal Saline) 1,000 mls @ 150 mls/hr IV .Q6H40M [facility] Last Admin: 08/04/17 11:35 Dose: 1,000 mls Lorazepam (Ativan) 2 mg SLOW IVP Q2H PRN PRN Reason: Anxiety to achieve Driscoll 2-3 Last Admin: 08/03/17 14:21 Dose: 2 mg Morphine Sulfate (Morphine) 2 mg SLOW IVP Q2H PRN PRN Reason: Breakthrough pain Last Admin: 08/03/17 19:50 Dose: 2 mg Propofol (Diprivan) 1,000 mg IV INF PRN; Protocol PRN Reason: TO ACHIEVE DRISCOLL SCORE 2-3 Last Admin: 08/04/17 02:26 Dose: 1,000 mg Sodium Chloride (Flush - Normal Saline) 10 ml IVF Q12HR BARON Last Admin: 08/04/17 08:33 Dose: 10 ml Sodium Chloride (Flush - Normal Saline) 10 ml IVF PRN PRN PRN Reason: Saline Flush
[2017-08-04] MEDS ORDERED: Cefepime 1 GM, Admixture Fee 1 EACH in Sterile Water 10 ML SLOW IVP SCH (16:00)
[2017-08-04 17:01] VITALS: BP 123/71
[2017-08-04 20:08] VITALS: TEMP 99.5
[2017-08-04] MEDS ORDERED: Cefepime 1 GM in Sodium Chloride 0.9% 100 ML IVPB SCH (21:00)
[2017-08-05] MEDS: Sodium Chloride 0.45% 1,000 ML IV SCH (02:06)
[2017-08-05] MEDS: Albumin 25% 25 GM/100 ML BOT IVPB SCH (02:06)
--- NOTE | 2017-08-06 10:01 | DS ---
DATE OF ADMISSION: 08/02/2017 DATE OF : 08/04/2017 TIME OF : 2325 hours. ADMITTING DIAGNOSIS: Acute hypoxic respiratory failure. DISCHARGE AND DIAGNOSIS: Acute hypoxic respiratory failure. SECONDARY DIAGNOSES: 1. Septic shock. 2. Obstructive uropathy. 3. Acute aspiration pneumonia. 4. Acute metabolic acidosis. 5. Obstructive uropathy. CONSULTANTS: Involved under the care, Dr. Pina from Critical Care and Dr. Andreea Bernal from Neurology. HISTORY OF PRESENT ILLNESS AND HOSPITAL COURSE AND SUMMARY: This is an 87 -year-old white male with a known past history of urinary problems and has been on chronic indwelling catheter, which was initially placed by an urologist. Patient had a catheter fall [facility] at the [facility] living and he came to the ER as we were unable to put back the catheter in and when he arrived, the patient was alert and oriented, but was having severe bleeding from the urethral area associated with severe abdominal pain. ER physician tried to put the catheter in, but failed to do it after multiple attempts and there was a persistent bleeding was going on. The patient at that moment developed sudden onset of low blood pressures and did felt nauseous and did threw up ,which according to the ER physician, patient did aspirate and patient went to drip code blue. Patient went into cardiac arrest. Patient had 3 episodes of CPR and associated with severe metabolic acidosis, pH of 7.0 and patient was given a bicarbonate drip along with epinephrine drip. Then, patient was immediately admitted to the ICU and Dr. Pina was consulted. Patient had a very poor prognosis to start with and due to his multiple medical issues patient has history of CVA, history of hypertension and has a complicated bladder. Urology was consulted and had to put in a catheter, which did receive almost more than a liters of urine and had a distended bladder on the CAT scan. Patient also had a bilateral hydronephrosis and very low blood pressures, he was continued on epinephrine drip and then later was switched onto Levophed drip. Patient blood pressures did not improve, his oxygenation seems to be improving but was still on Ventilator with 85% FIO2, heart rate was pretty high and blood pressures were continuously low and needing high doses of epinephrine. Discussed with the family, who initially wanted to be a FULL CODE later after discussion with Dr. Pina, I have changed to DNR status. Patient was growing EColi in Blood Cultures and was septic and on appropriate antibiotics. Patient developed asystole overnight and he was DNR and and was declared . TIME OF : 2325 hours. No physical examination could be done at the time of the that has happened later in the night. I spent less than 30 minutes with this patient on the day he . ZENIA
== END 2017-08-04 23:25 | disposition expired | DRG 698 ==
LOC: ERS 10:02 → CCU 16:27 → UNDODISIN 08-03 06:05
PROVIDERS: ADMIT Family Medicine; ATTEND Family Medicine
PROC: 5A1945Z Respiratory Ventilation, 24-96 Consecutive Hours (ICD-10-PCS; principal; 2017-08-02)
PROC: 5A12012 Performance of Cardiac Output, Single, Manual (ICD-10-PCS; 2017-08-02)
PROC: 02HV33Z Insertion of Infusion Device into Superior Vena Cava, Percutaneous Approach (ICD-10-PCS; 2017-08-02)
PROC: 0BH17EZ Insertion of Endotracheal Airway into Trachea, Via Natural or Artificial Opening (ICD-10-PCS; 2017-08-02)
PROC: 0T9B70Z Drainage of Bladder with Drainage Device, Via Natural or Artificial Opening (ICD-10-PCS; 2017-08-03)
DX: T83.511A Infection and inflammatory reaction due to indwelling urethral catheter, initial encounter (principal); A41.51 Sepsis due to Escherichia coli [E. coli]; I46.8 Cardiac arrest due to other underlying condition; J69.0 Pneumonitis due to inhalation of food and vomit; J96.01 Acute respiratory failure with hypoxia; R65.21 Severe sepsis with septic shock; N17.9 Acute kidney failure, unspecified; G93.41 Metabolic encephalopathy; E87.2 Acidosis; I69.351 Hemiplegia and hemiparesis following cerebral infarction affecting right dominant side; N13.1 Hydronephrosis with ureteral stricture, not elsewhere classified; I69.391 Dysphagia following cerebral infarction; E86.0 Dehydration; R31.0 Gross hematuria; R11.10 Vomiting, unspecified; Z89.611 Acquired absence of right leg above knee; F41.9 Anxiety disorder, unspecified; F32.9 Major depressive disorder, single episode, unspecified; F03.90 Unspecified dementia, unspecified severity, without behavioral disturbance, psychotic disturbance, mood disturbance, and anxiety; N35.9 Urethral stricture, unspecified; N32.0 Bladder-neck obstruction; I11.0 Hypertensive heart disease with heart failure; E78.00 Pure hypercholesterolemia, unspecified; Z87.891 Personal history of nicotine dependence; I69.320 Aphasia following cerebral infarction
CPT/HCPCS: 31500; 36415; 36556; 51702; 71045; 74176; 80048; 80053; 80170; 81001; 82330; 82803; 82805; 83605; 83735; 83880; 84145; 85007; 85025; 85027; 85384; 85610; 85730; 87040; 87077; 87086; 87106; 87149; 87186; 87804; 90471; 90682; 92950; 93005; 94002; 94003; 94640; 96361; 96365; 96366; 96367; 96368; 96376; 99292; A4216; G0008; J0171; J0461; J0692; J0696; J1580; J1650; J1956; J2060; J2270; J2543; J2704; J3370; J3480; J7050; J7070; J7620; P9047; Q2036